=== PATIENT | male | born 1970 | race Caucasian/White ===

== ENCOUNTER 2018-02-10 03:45 | Emergency (ER) | payer SELFPAY ==
[~2018-02-10] VITALS: Ht 182.9 cm; Wt 69.4 kg
[2018-02-10 03:49] VITALS: Ht 182.9 cm; Wt 69.4 kg
[2018-02-10 05:13] VITALS: BP 131/106
== END 2018-02-10 05:15 | disposition left against medical advice (07) ==
LOC: ED 03:45
DX: Z53.21 Procedure and treatment not carried out due to patient leaving prior to being seen by health care provider (principal)